=== PATIENT | male | born 1990 | race Caucasian/White ===

== ENCOUNTER 2017-11-25 17:14 | Emergency (ER) | payer OTHER ==
[2017-11-25] MEDS ORDERED: LIDOCAINE 1% (MPF) 30 ML INJ SC (20:00)
== END 2017-11-25 20:45 | disposition home or self-care (01) ==
LOC: FTE 17:14
DX: S61.412A Laceration without foreign body of left hand, initial encounter (principal); W27.0XXA Contact with workbench tool, initial encounter; Y92.9 Unspecified place or not applicable
CPT/HCPCS: 12002; 99283-25

== ENCOUNTER 2018-04-26 17:23 | Emergency (ER) | payer OTHER | END 2018-04-26 21:37 | disposition home or self-care (01) | LOC: FTE 17:23 | DX: L25.9 Unspecified contact dermatitis, unspecified cause (principal) | CPT/HCPCS: 99283; Z7502 ==